=== PATIENT | male | born 1975 | race American Indian/Alaskan Native ===

== ENCOUNTER 2017-05-05 04:23 | Emergency (ER) | payer SELFPAY ==
[2017-05-05 04:32] VITALS: BP 155/99
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
== END 2017-05-05 05:34 | disposition home or self-care (01) ==
LOC: ED 04:23
DX: M54.6 Pain in thoracic spine (principal); J45.909 Unspecified asthma, uncomplicated; V49.49XA Driver injured in collision with other motor vehicles in traffic accident, initial encounter; Y93.89 Activity, other specified; Y92.89 Other specified places as the place of occurrence of the external cause; Y99.8 Other external cause status
CPT/HCPCS: 99282